=== PATIENT | male | born 1960 | race Caucasian/White ===

== ENCOUNTER 2018-12-23 13:21 | Inpatient (IN) | payer OTHER ==
[2018-12-23 20:28] VITALS: BMI 28.8
--- NOTE | 2018-12-23 20:54 | HP ---
CIWA Score - Admission Criteria [facility]ASAS Guidelines: Admission for Medically Managed Detox: Requires at least one of the followin. CIWA greater than 12 2. Seizures within the past 24 hours 3. Delirium tremens within the past 24 hours 4. Hallucinations within the past 24 hours 5. Acute intervention needed for co occurring medical disorder 6. Acute intervention needed for co occurring psychiatric disorder 7. Severe withdrawal that cannot be handled at a lower level of care (continued vomiting, continued diarrhea, abnormal vital signs) requiring intravenous medication and/or fluids 8. Admission ROS S - HPI Chief Complaint: Seeking admission to Rehab. Allergies/Adverse Reactions: Allergies Allergy/AdvReac Type Severity Reaction Status Date / Time No Known Allergies Allergy Verified 12/23/18 20:08 History of Present Illness: 58 years old male with a long history of alcohol dependence is seeking admission to Rehab. Patient has been to previous detox at [facility]. He has medical history of asthma, hypertension, depression, anemia, anxiety and prostate cancer. He reports that he completed 11/10/2018 at [facility]. He denies suicidal ideation at this time. Exam Limitations: No Limitations - Ebola screening Have you traveled outside of the country in the last 21 days: No Have you had contact with anyone from an Ebola affected area: No Do you have a fever: No - Review of Systems Constitutional: No Symptoms Reported EENT: reports: No Symptoms Reported Respiratory: reports: No Symptoms reported Cardiac: reports: No Symptoms Reported GI: reports: No Symptoms Reported : reports: No Symptoms Reported Musculoskeletal: reports: No Symptoms Reported Integumentary: reports: No Symptoms Reported Neuro: reports: No Symptoms reported Endocrine: reports: No Symptoms Reported Hematology: reports: No Symptoms Reported Psychiatric: reports: No Sypmtoms Reported, Mood/Affect Appropiate, Orientated x3 Other Systems: Reviewed and Negative Patient History - Patient Medical History Hx Anemia: Yes (Vitamin D3) Hx Asthma: Yes (Pt is on Albuterol MDI) Hx Chronic Obstructive Pulmonary Disease (COPD): No Hx Cancer: Yes (Prostate cancer- Completed radiation on 11/10/2018) Hx Cardiac Disorders: No Hx Hypertension: Yes (Not on medication.) Hx Hypercholesterolemia: No Hx Pacemaker: No HX Cerebrovascular Accident: No Hx Seizures: No Hx Dementia: No Hx Diabetes: No Hx Gastrointestinal Disorders: No Hx Liver Disease: No Hx Genitourinary Disorders: No Hx Sexually Transmitted Disorders: No Hx Renal Disease (ESRD): No Hx Thyroid Disease: No Hx Human Immunodeficiency Virus (HIV): No (NEGATIVE 2019) Hx Hepatitis C: No Hx Depression: Yes (Gabapentin, sertraline) Hx Suicide Attempt: No (Denies suicidal ideation at this time) Hx Bipolar Disorder: Yes (Not on medication) Hx Schizophrenia: No - Patient Surgical History Past Surgical History: Yes Other Surgical History: Sx R hand for tendon repair and re attachment last 3 fingers. Hemmorhoidect - PPD History Previous Implant?: Yes Documented Results: Negative w/proof Implanted On Prior R Admission?: Yes Date: 11/01/13 PPD to be Administered?: Yes - Reproductive History Patient is a Female of Child Bearing Age (11 -55 yrs old): No (male) - Smoking Cessation Smoking history: Current every day smoker Have you smoked in the past 12 months: Yes Aproximately how many cigarettes per day: 20 Hx Chewing Tobacco Use: No Initiated information on smoking cessation: Yes 'Breaking Loose' booklet given: 12/23/18 - Substance & Tx. History Hx Alcohol Use: Yes Hx Substance Use: No Substance Use Type: Alcohol Hx Substance Use Treatment: Yes ([facility]) - Substances abused Alcohol Substance route: Oral Frequency: Daily Amount used: 3 or 4 beers Age of first use: 4 Date of last use: 12/19/18 Admission Physical Exam BHS - Vital Signs Vital Signs: Vital Signs - 24 hr 12/23/18 20:08 Temperature 97.5 F L Pulse Rate 73 Respiratory 16 Rate Blood Pressure 106/67 - Physical General Appearance: Yes: Within Normal Limits, Appropriately Dressed, Moderate Distress HEENTM: Yes: Within Normal Limits, Normocephalic, Normal Voice, JESSE Respiratory: Yes: Lungs Clear, Normal Breath Sounds, No Respiratory Distress Neck: Yes: Within Normal Limits, Trachea in good position Breast: Yes: Breast Exam Deferred Cardiology: Yes: Within Normal Limits, Regular Rhythm, Regular Rate Abdominal: Yes: Normal Bowel Sounds, Soft Genitourinary: Yes: Within Normal Limits Back: Yes: Normal Inspection Musculoskeletal: Yes: Within Normal Limits Extremities: Yes: Within Normal Limits, Normal Inspection Neurological: Yes: Alert, Normal Mood/Affect Integumentary: Yes: Warm Lymphatic: Yes: Within Normal Limits - Diagnostic (1) Anemia Current Visit: Yes Status: Acute Qualifiers: Anemia type: unspecified type Qualified Code(s): D64.9 - Anemia, unspecified (2) Depression Current Visit: Yes Status: Chronic Qualifiers: Depression Type: unspecified Qualified Code(s): F32.9 - Major depressive disorder, single episode, unspecified (3) Anxiety Current Visit: Yes Status: Chronic (4) Prostate CA Current Visit: Yes Status: Chronic (5) Alcohol dependence Current Visit: Yes Status: Chronic Qualifiers: Substance use status: uncomplicated Qualified Code(s): F10.20 - Alcohol dependence, uncomplicated (6) Asthma Current Visit: Yes Status: Acute Qualifiers: Asthma severity: mild Asthma persistence: intermittent (7) Essential hypertension Current Visit: Yes Status: Chronic (8) Nicotine dependence Current Visit: Yes Status: Acute Qualifiers: Nicotine product type: cigarettes Substance use status: uncomplicated Qualified Code(s): F17.210 - Nicotine dependence, cigarettes, uncomplicated Cleared for Admission S - Detox or Rehab [facility] Level of Care: Observation Bed Claeared for Rehab Admission: Yes Inpatient Rehab Admission - Rehab Decision to Admit Inpatient rehab admission?: Yes - Initial Determination Are CD services needed?: No Free of communicable disease: Yes Not in need of hospitalization: Yes - Rehab Admission Criteria Previous failed treatment: Yes Poor recovery environment: Yes Comorbidities: Yes Lacks judgement: Yes Patient is meeting Inpatient Rehab admission criteria:: Yes
[2018-12-23] MEDS ORDERED: MAGNESIUM CITRATE 300 ML BOTTLE PO PRN (21:11)
[2018-12-23] MEDS ORDERED: MAG HYDROX/AL HYDROX/SIMETH 30 ML UNIT-DOSE CUP PO PRN (21:11)
[2018-12-23] MEDS ORDERED: guaiFENesin 200 MG/10 ML 10 ML UNIT-DOSE CUPS PO PRN (21:11)
[2018-12-23] MEDS ORDERED: MAGNESIUM HYDROX 2400MG/30ML ORAL SUSPENSION 30 ML CUP PO PRN (21:11)
[2018-12-23] MEDS ORDERED: IBUPROFEN 400 MG TABLET (FP) PO PRN (21:11)
[2018-12-23] MEDS ORDERED: NICOTINE POLACRILEX 2 MG GUM BC PRN (21:11)
[2018-12-23] MEDS ORDERED: ACETAMINOPHEN 325 MG TABLET (FP) PO PRN (21:11)
[2018-12-23] MEDS ORDERED: MENTHOL/PHENOL 1 EACH UD MM PRN (21:11)
[2018-12-23] MEDS ORDERED: P-EPHED 60MG/TRIPROLIDI 2.5MG TABLET PO PRN (21:11)
[2018-12-23] MEDS ORDERED: LOPERAMIDE HCL 2 MG CAPSULE PO PRN (21:11)
[2018-12-23] MEDS ORDERED: ALBUTEROL SO4 8 GM HFA INHALER IH PRN (21:13)
[2018-12-23] MEDS ORDERED: CHOLECALCIFEROL PO SCH (21:15)
[2018-12-23] MEDS: THIAMINE HCL 100 MG TABLET (FP) PO SCH (23:44)
[2018-12-24] MEDS: TAMSULOSIN HCL 0.4 MG CAP PO SCH (08:32)
[2018-12-24] MEDS ORDERED: THIAMINE MONONITRATE 100 MG PO SCH (10:00)
[2018-12-24] MEDS: PRENATAL VITAMINS W/ FOLIC ACID TABLET (FP) PO SCH (10:32)
[2018-12-24] MEDS: NICOTINE 21 MG/24 HOURS TOPICAL PATCH TD SCH (10:33)
--- NOTE | 2018-12-24 10:42 | EKG ---
Test Reason : Blood Pressure : / mmHG Vent. Rate : 056 BPM Atrial Rate : 056 BPM P-R Int : 180 ms QRS Dur : 086 ms QT Int : 432 ms P-R-T Axes : 062 018 052 degrees QTc Int : 416 ms SINUS BRADYCARDIA EARLY REPOLARIZATION OTHERWISE NORMAL ECG NO PREVIOUS ECGS AVAILABLE Confirmed by XIMENA VALENZUELA, CHERYL ([id number]) on 12/24/2018 10:42:39 AM Referred By: Sumit Ramon Confirmed By:CHERYL BUENO MD
--- NOTE | 2018-12-24 10:43 | CONSULT ---
[facility] Psychiatric Consult - Data Date of interview: 12/24/18 Admission source: Self-referred Identifying data: Mr Perkins is a 58 years old male, father of 6 children, employed, homeless admitted to rehab on 12/23/18 Substance Abuse History: Reports history of alcohol use. Refere to addiction counselor's summary for further information Medical History: Significant for anemia, bronchial astma, hypertension, BPH, gout, history of radiation treatment for prostate cancer and orthosurgery for repair tendon right hand and reattachment of last 3 fingers. Smokes cigarettes 1 ppd Psychiatric History: Patient approached twice at bedside. Told narrative writer:"I don't feel well. I will talk to you tomorrow"
[2018-12-24] MEDS: FOLIC ACID 1 MG TABLET (FP) PO SCH (10:59)
[2018-12-24 12:26] LABS: HEMATOCRIT 44.5 % (35.4-49); MCH 30.9 pg (25.7-33.7); MCHC 33.7 g/dl (32.0-35.9); MEAN CELL VOLUME 91.8 fl (80-96); MEAN PLT VOLUME 8.9 fl (7.5-11.1); PLATELET COUNT 213 K/MM3 (134-434); RBC 4.85 M/mm3 (4.00-5.60); RDW 14.5 % (11.9-15.9); WHITE BLOOD COUNT 5.7 K/mm3 (4.0-10.0)
[2018-12-24 12:42] LABS: ALBUMIN 3.3 g/dl (3.4-5.0); BILIRUBIN,TOTAL 0.4 mg/dL (0.2-1); CALCIUM 8.7 mg/dL (8.5-10.1); CREATININE 0.9 mg/dL (0.55-1.3); POTASSIUM 4.1 mmol/L (3.5-5.1); TOT PROT 6.5 g/dl (6.4-8.2)
[2018-12-24] MEDS: THIAMINE HCL 100 MG TABLET (FP) PO SCH (21:52)
[2018-12-25] MEDS: TAMSULOSIN HCL 0.4 MG CAP PO SCH (09:30)
[2018-12-25] MEDS: NICOTINE 21 MG/24 HOURS TOPICAL PATCH TD SCH (09:49)
[2018-12-25] MEDS: PRENATAL VITAMINS W/ FOLIC ACID TABLET (FP) PO SCH (09:49)
[2018-12-25] MEDS: FOLIC ACID 1 MG TABLET (FP) PO SCH (09:49)
[2018-12-25] MEDS: MELATONIN 5 MG TABLETS PO PRN (21:14)
[2018-12-25] MEDS: THIAMINE HCL 100 MG TABLET (FP) PO SCH (21:14)
[2018-12-26] MEDS: TAMSULOSIN HCL 0.4 MG CAP PO SCH (09:46)
[2018-12-26] MEDS: PRENATAL VITAMINS W/ FOLIC ACID TABLET (FP) PO SCH (09:46)
[2018-12-26] MEDS: FOLIC ACID 1 MG TABLET (FP) PO SCH (09:46)
[2018-12-26] MEDS: NICOTINE 21 MG/24 HOURS TOPICAL PATCH TD SCH (09:47)
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
[2018-12-26 18:31] LABS: EPI CELLS 1.9 /HPF (0-5/HPF); HYALINE CASTS 2 /lpf (0-8); PH,URINE 7.5 (5.0-8.0); URINE APPEARANCE CLEAR; URINE BACTERIA 2.4 /hpf (NEGATIVE); URINE BILIRUBIN NEGATIVE (NEGATIVE); URINE COLOR YELLOW; URINE GLUCOSE (UA) NEGATIVE (NEGATIVE); URINE KETONE NEGATIVE (NEGATIVE); URINE LEUK ESTERASE NEGATIVE (NEGATIVE); URINE NITRITE NEGATIVE (NEGATIVE); URINE PROTEIN 1+ (NEGATIVE); URINE RBC 6 /hpf (0-4); URINE WBC 5 /hpf (0-5)
[2018-12-26] MEDS: GABAPENTIN 300 MG CAPSULE (FP) PO SCH (21:16)
[2018-12-26] MEDS: THIAMINE HCL 100 MG TABLET (FP) PO SCH (21:16)
[2018-12-26] MEDS: QUEtiapine FUMARATE 100 MG TABLET (FP) PO SCH (21:16)
[2018-12-26] MEDS: MELATONIN 5 MG TABLETS PO PRN (21:17)
[2018-12-27] MEDS ORDERED: PT OWN MED DRAWER 7, Y5N ONE (08:38)
[2018-12-27] MEDS: TAMSULOSIN HCL 0.4 MG CAP PO SCH (08:40)
[2018-12-27] MEDS: NICOTINE 21 MG/24 HOURS TOPICAL PATCH TD SCH (10:05)
[2018-12-27] MEDS: FOLIC ACID 1 MG TABLET (FP) PO SCH (10:06)
[2018-12-27] MEDS: SERTRALINE HCL 50 MG TABLET (FP) PO SCH (10:06)
[2018-12-27] MEDS: PRENATAL VITAMINS W/ FOLIC ACID TABLET (FP) PO SCH (10:06)
[2018-12-27] MEDS: GABAPENTIN 300 MG CAPSULE (FP) PO SCH ×2 (10:06→21:27)
[2018-12-27] MEDS: QUEtiapine FUMARATE 100 MG TABLET (FP) PO SCH (21:27)
[2018-12-27] MEDS: THIAMINE HCL 100 MG TABLET (FP) PO SCH (21:28)
[2018-12-28] MEDS ORDERED: PT OWN MED DRAWER 7, Y5N ONE (09:24)
[2018-12-28] MEDS: GABAPENTIN 300 MG CAPSULE (FP) PO SCH ×2 (09:49→21:24)
[2018-12-28] MEDS: FOLIC ACID 1 MG TABLET (FP) PO SCH (09:49)
[2018-12-28] MEDS: PRENATAL VITAMINS W/ FOLIC ACID TABLET (FP) PO SCH (09:49)
[2018-12-28] MEDS: SERTRALINE HCL 50 MG TABLET (FP) PO SCH (09:49)
[2018-12-28] MEDS: NICOTINE 21 MG/24 HOURS TOPICAL PATCH TD SCH (09:49)
[2018-12-28] MEDS: TAMSULOSIN HCL 0.4 MG CAP PO SCH (09:49)
[2018-12-28] MEDS: THIAMINE HCL 100 MG TABLET (FP) PO SCH (21:24)
[2018-12-28] MEDS: MELATONIN 5 MG TABLETS PO PRN (21:25)
[2018-12-28] MEDS: QUEtiapine FUMARATE 100 MG TABLET (FP) PO SCH (21:26)
[2018-12-29] MEDS: TAMSULOSIN HCL 0.4 MG CAP PO SCH (08:37)
[2018-12-29] MEDS ORDERED: PT OWN MED DRAWER 7, Y5N ONE (08:51)
[2018-12-29] MEDS: NICOTINE 21 MG/24 HOURS TOPICAL PATCH TD SCH (09:37)
[2018-12-29] MEDS: GABAPENTIN 300 MG CAPSULE (FP) PO SCH ×2 (09:37→21:21)
[2018-12-29] MEDS: FOLIC ACID 1 MG TABLET (FP) PO SCH (09:37)
[2018-12-29] MEDS: PRENATAL VITAMINS W/ FOLIC ACID TABLET (FP) PO SCH (09:37)
[2018-12-29] MEDS: SERTRALINE HCL 50 MG TABLET (FP) PO SCH (09:37)
[2018-12-29] MEDS ORDERED: ERGOCALCIFEROL (VIT D2) 50,000 UNIT (1.25 MG) CAPSULE PO ONE (15:48)
[2018-12-29] MEDS: THIAMINE HCL 100 MG TABLET (FP) PO SCH (21:21)
[2018-12-29] MEDS: MELATONIN 5 MG TABLETS PO PRN (21:21)
[2018-12-29] MEDS: QUEtiapine FUMARATE 100 MG TABLET (FP) PO SCH (21:21)
[2018-12-30] MEDS: TAMSULOSIN HCL 0.4 MG CAP PO SCH (09:09)
[2018-12-30] MEDS: GABAPENTIN 300 MG CAPSULE (FP) PO SCH ×2 (10:08→21:21)
[2018-12-30] MEDS: SERTRALINE HCL 50 MG TABLET (FP) PO SCH (10:08)
[2018-12-30] MEDS: NICOTINE 21 MG/24 HOURS TOPICAL PATCH TD SCH (10:08)
[2018-12-30] MEDS: PRENATAL VITAMINS W/ FOLIC ACID TABLET (FP) PO SCH (10:08)
[2018-12-30] MEDS: FOLIC ACID 1 MG TABLET (FP) PO SCH (10:09)
[2018-12-30] MEDS: THIAMINE HCL 100 MG TABLET (FP) PO SCH (21:21)
[2018-12-30] MEDS: QUEtiapine FUMARATE 100 MG TABLET (FP) PO SCH (21:21)
[2018-12-30] MEDS: MELATONIN 5 MG TABLETS PO PRN (21:21)
[2018-12-31] MEDS ORDERED: PT OWN MED DRAWER 7, Y5N ONE (08:53)
[2018-12-31] MEDS: TAMSULOSIN HCL 0.4 MG CAP PO SCH (09:04)
[2018-12-31] MEDS: NICOTINE 21 MG/24 HOURS TOPICAL PATCH TD SCH (10:03)
[2018-12-31] MEDS: GABAPENTIN 300 MG CAPSULE (FP) PO SCH ×2 (10:04→21:18)
[2018-12-31] MEDS: PRENATAL VITAMINS W/ FOLIC ACID TABLET (FP) PO SCH (10:04)
[2018-12-31] MEDS: FOLIC ACID 1 MG TABLET (FP) PO SCH (10:04)
[2018-12-31] MEDS: SERTRALINE HCL 50 MG TABLET (FP) PO SCH (10:04)
[2018-12-31] MEDS: THIAMINE HCL 100 MG TABLET (FP) PO SCH (21:18)
[2018-12-31] MEDS: QUEtiapine FUMARATE 100 MG TABLET (FP) PO SCH (21:18)
[2018-12-31] MEDS: MELATONIN 5 MG TABLETS PO PRN (21:19)
[2019-01-01] MEDS: SERTRALINE HCL 50 MG TABLET (FP) PO SCH (09:54)
[2019-01-01] MEDS: GABAPENTIN 300 MG CAPSULE (FP) PO SCH ×2 (09:54→21:24)
[2019-01-01] MEDS: FOLIC ACID 1 MG TABLET (FP) PO SCH (09:54)
[2019-01-01] MEDS: PRENATAL VITAMINS W/ FOLIC ACID TABLET (FP) PO SCH (09:54)
[2019-01-01] MEDS: TAMSULOSIN HCL 0.4 MG CAP PO SCH (09:55)
[2019-01-01] MEDS: NICOTINE 21 MG/24 HOURS TOPICAL PATCH TD SCH (09:55)
[2019-01-01] MEDS: THIAMINE HCL 100 MG TABLET (FP) PO SCH (21:24)
[2019-01-01] MEDS: QUEtiapine FUMARATE 100 MG TABLET (FP) PO SCH (21:24)
[2019-01-02] MEDS: TAMSULOSIN HCL 0.4 MG CAP PO SCH (08:58)
[2019-01-02] MEDS: SERTRALINE HCL 50 MG TABLET (FP) PO SCH (09:57)
[2019-01-02] MEDS: GABAPENTIN 300 MG CAPSULE (FP) PO SCH ×2 (09:57→21:16)
[2019-01-02] MEDS: NICOTINE 21 MG/24 HOURS TOPICAL PATCH TD SCH (09:57)
[2019-01-02] MEDS: PRENATAL VITAMINS W/ FOLIC ACID TABLET (FP) PO SCH (09:58)
[2019-01-02] MEDS: FOLIC ACID 1 MG TABLET (FP) PO SCH (09:59)
[2019-01-02] MEDS: QUEtiapine FUMARATE 100 MG TABLET (FP) PO SCH (21:16)
[2019-01-02] MEDS: MELATONIN 5 MG TABLETS PO PRN (21:16)
[2019-01-02] MEDS: THIAMINE HCL 100 MG TABLET (FP) PO SCH (21:16)
[2019-01-03] MEDS ORDERED: PT OWN MED DRAWER 7, Y5N ONE (08:39)
[2019-01-03] MEDS: TAMSULOSIN HCL 0.4 MG CAP PO SCH (09:34)
[2019-01-03] MEDS: NICOTINE 21 MG/24 HOURS TOPICAL PATCH TD SCH (09:43)
[2019-01-03] MEDS: PRENATAL VITAMINS W/ FOLIC ACID TABLET (FP) PO SCH (09:44)
[2019-01-03] MEDS: SERTRALINE HCL 50 MG TABLET (FP) PO SCH (09:44)
[2019-01-03] MEDS: FOLIC ACID 1 MG TABLET (FP) PO SCH (09:44)
[2019-01-03] MEDS: GABAPENTIN 300 MG CAPSULE (FP) PO SCH ×2 (09:44→21:16)
[2019-01-03] MEDS: THIAMINE HCL 100 MG TABLET (FP) PO SCH (21:16)
[2019-01-03] MEDS: QUEtiapine FUMARATE 100 MG TABLET (FP) PO SCH (21:16)
[2019-01-04] MEDS ORDERED: PT OWN MED DRAWER 7, Y5N ONE (08:37)
[2019-01-04] MEDS: NICOTINE 21 MG/24 HOURS TOPICAL PATCH TD SCH (09:06)
[2019-01-04] MEDS: FOLIC ACID 1 MG TABLET (FP) PO SCH (09:06)
[2019-01-04] MEDS: TAMSULOSIN HCL 0.4 MG CAP PO SCH (09:06)
[2019-01-04] MEDS: GABAPENTIN 300 MG CAPSULE (FP) PO SCH ×2 (09:06→21:16)
[2019-01-04] MEDS: PRENATAL VITAMINS W/ FOLIC ACID TABLET (FP) PO SCH (09:06)
[2019-01-04] MEDS: SERTRALINE HCL 50 MG TABLET (FP) PO SCH (09:06)
[2019-01-04] MEDS: MELATONIN 5 MG TABLETS PO PRN (21:16)
[2019-01-04] MEDS: QUEtiapine FUMARATE 100 MG TABLET (FP) PO SCH (21:16)
[2019-01-04] MEDS: THIAMINE HCL 100 MG TABLET (FP) PO SCH (21:16)
[2019-01-05] MEDS: TAMSULOSIN HCL 0.4 MG CAP PO SCH (08:39)
[2019-01-05] MEDS ORDERED: PT OWN MED DRAWER 7, Y5N ONE (08:42)
[2019-01-05] MEDS: PRENATAL VITAMINS W/ FOLIC ACID TABLET (FP) PO SCH (09:39)
[2019-01-05] MEDS: FOLIC ACID 1 MG TABLET (FP) PO SCH (09:39)
[2019-01-05] MEDS: GABAPENTIN 300 MG CAPSULE (FP) PO SCH ×2 (09:39→21:15)
[2019-01-05] MEDS: SERTRALINE HCL 50 MG TABLET (FP) PO SCH (09:40)
[2019-01-05] MEDS: NICOTINE 21 MG/24 HOURS TOPICAL PATCH TD SCH (09:40)
[2019-01-05] MEDS: QUEtiapine FUMARATE 100 MG TABLET (FP) PO SCH (21:15)
[2019-01-05] MEDS: MELATONIN 5 MG TABLETS PO PRN (21:15)
[2019-01-05] MEDS: THIAMINE HCL 100 MG TABLET (FP) PO SCH (21:15)
[2019-01-06] MEDS: TAMSULOSIN HCL 0.4 MG CAP PO SCH (08:50)
[2019-01-06] MEDS: GABAPENTIN 300 MG CAPSULE (FP) PO SCH ×2 (10:05→21:15)
[2019-01-06] MEDS: NICOTINE 21 MG/24 HOURS TOPICAL PATCH TD SCH (10:05)
[2019-01-06] MEDS: FOLIC ACID 1 MG TABLET (FP) PO SCH (10:05)
[2019-01-06] MEDS: SERTRALINE HCL 50 MG TABLET (FP) PO SCH (10:05)
[2019-01-06] MEDS: PRENATAL VITAMINS W/ FOLIC ACID TABLET (FP) PO SCH (10:05)
[2019-01-06] MEDS: THIAMINE HCL 100 MG TABLET (FP) PO SCH (21:15)
[2019-01-06] MEDS: MELATONIN 5 MG TABLETS PO PRN (21:15)
[2019-01-06] MEDS: QUEtiapine FUMARATE 100 MG TABLET (FP) PO SCH (21:15)
[2019-01-07] MEDS: TAMSULOSIN HCL 0.4 MG CAP PO SCH (08:51)
[2019-01-07] MEDS: NICOTINE 21 MG/24 HOURS TOPICAL PATCH TD SCH (09:51)
[2019-01-07] MEDS: PRENATAL VITAMINS W/ FOLIC ACID TABLET (FP) PO SCH (09:51)
[2019-01-07] MEDS: SERTRALINE HCL 50 MG TABLET (FP) PO SCH (09:51)
[2019-01-07] MEDS: GABAPENTIN 300 MG CAPSULE (FP) PO SCH ×2 (09:51→21:13)
[2019-01-07] MEDS: FOLIC ACID 1 MG TABLET (FP) PO SCH (09:51)
[2019-01-07] MEDS: QUEtiapine FUMARATE 100 MG TABLET (FP) PO SCH (21:13)
[2019-01-07] MEDS: THIAMINE HCL 100 MG TABLET (FP) PO SCH (21:13)
[2019-01-07] MEDS: MELATONIN 5 MG TABLETS PO PRN (21:13)
[2019-01-08] MEDS: NICOTINE 21 MG/24 HOURS TOPICAL PATCH TD SCH (09:40)
[2019-01-08] MEDS: PRENATAL VITAMINS W/ FOLIC ACID TABLET (FP) PO SCH (09:40)
[2019-01-08] MEDS: SERTRALINE HCL 50 MG TABLET (FP) PO SCH (09:40)
[2019-01-08] MEDS: FOLIC ACID 1 MG TABLET (FP) PO SCH (09:40)
[2019-01-08] MEDS: TAMSULOSIN HCL 0.4 MG CAP PO SCH (09:40)
[2019-01-08] MEDS: GABAPENTIN 300 MG CAPSULE (FP) PO SCH ×2 (09:40→21:10)
[2019-01-08] MEDS: THIAMINE HCL 100 MG TABLET (FP) PO SCH (21:10)
[2019-01-08] MEDS: MELATONIN 5 MG TABLETS PO PRN (21:10)
[2019-01-08] MEDS: QUEtiapine FUMARATE 100 MG TABLET (FP) PO SCH (21:10)
[2019-01-09] MEDS: FOLIC ACID 1 MG TABLET (FP) PO SCH (08:45)
[2019-01-09] MEDS: SERTRALINE HCL 50 MG TABLET (FP) PO SCH (09:45)
[2019-01-09] MEDS: TAMSULOSIN HCL 0.4 MG CAP PO SCH (09:45)
[2019-01-09] MEDS: NICOTINE 21 MG/24 HOURS TOPICAL PATCH TD SCH (09:45)
[2019-01-09] MEDS: GABAPENTIN 300 MG CAPSULE (FP) PO SCH ×2 (09:45→21:25)
[2019-01-09] MEDS: PRENATAL VITAMINS W/ FOLIC ACID TABLET (FP) PO SCH (09:46)
[2019-01-09] MEDS: QUEtiapine FUMARATE 100 MG TABLET (FP) PO SCH (21:25)
[2019-01-09] MEDS: THIAMINE HCL 100 MG TABLET (FP) PO SCH (21:25)
[2019-01-09] MEDS: MELATONIN 5 MG TABLETS PO PRN (21:25)
[2019-01-10] MEDS: FOLIC ACID 1 MG TABLET (FP) PO SCH (09:57)
[2019-01-10] MEDS: GABAPENTIN 300 MG CAPSULE (FP) PO SCH ×2 (09:57→21:21)
[2019-01-10] MEDS: TAMSULOSIN HCL 0.4 MG CAP PO SCH (09:57)
[2019-01-10] MEDS: PRENATAL VITAMINS W/ FOLIC ACID TABLET (FP) PO SCH (09:57)
[2019-01-10] MEDS: SERTRALINE HCL 50 MG TABLET (FP) PO SCH (09:57)
[2019-01-10] MEDS: NICOTINE 21 MG/24 HOURS TOPICAL PATCH TD SCH (09:58)
[2019-01-10] MEDS: THIAMINE HCL 100 MG TABLET (FP) PO SCH (21:21)
[2019-01-10] MEDS: QUEtiapine FUMARATE 100 MG TABLET (FP) PO SCH (21:21)
[2019-01-11] MEDS: NICOTINE 21 MG/24 HOURS TOPICAL PATCH TD SCH (09:45)
[2019-01-11] MEDS: PRENATAL VITAMINS W/ FOLIC ACID TABLET (FP) PO SCH (09:45)
[2019-01-11] MEDS: TAMSULOSIN HCL 0.4 MG CAP PO SCH (09:45)
[2019-01-11] MEDS: SERTRALINE HCL 50 MG TABLET (FP) PO SCH (09:45)
[2019-01-11] MEDS: FOLIC ACID 1 MG TABLET (FP) PO SCH (09:45)
[2019-01-11] MEDS: GABAPENTIN 300 MG CAPSULE (FP) PO SCH ×2 (09:45→21:18)
[2019-01-11] MEDS: THIAMINE HCL 100 MG TABLET (FP) PO SCH (21:18)
[2019-01-11] MEDS: QUEtiapine FUMARATE 100 MG TABLET (FP) PO SCH (21:18)
[2019-01-12] MEDS: FOLIC ACID 1 MG TABLET (FP) PO SCH (09:34)
[2019-01-12] MEDS: TAMSULOSIN HCL 0.4 MG CAP PO SCH (09:34)
[2019-01-12] MEDS: PRENATAL VITAMINS W/ FOLIC ACID TABLET (FP) PO SCH (09:34)
[2019-01-12] MEDS: NICOTINE 21 MG/24 HOURS TOPICAL PATCH TD SCH (09:34)
[2019-01-12] MEDS: GABAPENTIN 300 MG CAPSULE (FP) PO SCH ×2 (09:34→21:25)
[2019-01-12] MEDS: SERTRALINE HCL 50 MG TABLET (FP) PO SCH (10:21)
[2019-01-12] MEDS: MELATONIN 5 MG TABLETS PO PRN (21:25)
[2019-01-12] MEDS: THIAMINE HCL 100 MG TABLET (FP) PO SCH (21:25)
[2019-01-12] MEDS: QUEtiapine FUMARATE 100 MG TABLET (FP) PO SCH (21:25)
[2019-01-13] MEDS ORDERED: PT OWN MED DRAWER 7, Y5N ONE (08:55)
[2019-01-13] MEDS: FOLIC ACID 1 MG TABLET (FP) PO SCH (09:19)
[2019-01-13] MEDS: PRENATAL VITAMINS W/ FOLIC ACID TABLET (FP) PO SCH (09:19)
[2019-01-13] MEDS: NICOTINE 21 MG/24 HOURS TOPICAL PATCH TD SCH (09:19)
[2019-01-13] MEDS: TAMSULOSIN HCL 0.4 MG CAP PO SCH (09:19)
[2019-01-13] MEDS: SERTRALINE HCL 50 MG TABLET (FP) PO SCH (09:19)
[2019-01-13] MEDS: GABAPENTIN 300 MG CAPSULE (FP) PO SCH ×2 (09:19→21:29)
[2019-01-13] MEDS: MELATONIN 5 MG TABLETS PO PRN (21:29)
[2019-01-13] MEDS: QUEtiapine FUMARATE 100 MG TABLET (FP) PO SCH (21:29)
[2019-01-13] MEDS: THIAMINE HCL 100 MG TABLET (FP) PO SCH (21:29)
[2019-01-14] MEDS: TAMSULOSIN HCL 0.4 MG CAP PO SCH (08:50)
[2019-01-14] MEDS: GABAPENTIN 300 MG CAPSULE (FP) PO SCH ×2 (09:50→21:42)
[2019-01-14] MEDS: FOLIC ACID 1 MG TABLET (FP) PO SCH (09:50)
[2019-01-14] MEDS: NICOTINE 21 MG/24 HOURS TOPICAL PATCH TD SCH (09:50)
[2019-01-14] MEDS: PRENATAL VITAMINS W/ FOLIC ACID TABLET (FP) PO SCH (09:50)
[2019-01-14] MEDS: SERTRALINE HCL 50 MG TABLET (FP) PO SCH (09:50)
[2019-01-14] MEDS: THIAMINE HCL 100 MG TABLET (FP) PO SCH (21:42)
[2019-01-14] MEDS: MELATONIN 5 MG TABLETS PO PRN (21:42)
[2019-01-14] MEDS: QUEtiapine FUMARATE 100 MG TABLET (FP) PO SCH (21:42)
[2019-01-15] MEDS ORDERED: PT OWN MED DRAWER 7, Y5N ONE (08:45)
[2019-01-15] MEDS: PRENATAL VITAMINS W/ FOLIC ACID TABLET (FP) PO SCH (09:56)
[2019-01-15] MEDS: GABAPENTIN 300 MG CAPSULE (FP) PO SCH ×2 (09:56→21:33)
[2019-01-15] MEDS: NICOTINE 21 MG/24 HOURS TOPICAL PATCH TD SCH (09:56)
[2019-01-15] MEDS: FOLIC ACID 1 MG TABLET (FP) PO SCH (09:56)
[2019-01-15] MEDS: TAMSULOSIN HCL 0.4 MG CAP PO SCH (09:57)
[2019-01-15] MEDS: SERTRALINE HCL 50 MG TABLET (FP) PO SCH (10:47)
[2019-01-15] MEDS: MELATONIN 5 MG TABLETS PO PRN (21:33)
[2019-01-15] MEDS: QUEtiapine FUMARATE 100 MG TABLET (FP) PO SCH (21:33)
[2019-01-15] MEDS: THIAMINE HCL 100 MG TABLET (FP) PO SCH (21:33)
[2019-01-16] MEDS: PRENATAL VITAMINS W/ FOLIC ACID TABLET (FP) PO SCH (09:39)
[2019-01-16] MEDS: GABAPENTIN 300 MG CAPSULE (FP) PO SCH ×2 (09:39→21:24)
[2019-01-16] MEDS: NICOTINE 21 MG/24 HOURS TOPICAL PATCH TD SCH (09:39)
[2019-01-16] MEDS: FOLIC ACID 1 MG TABLET (FP) PO SCH (09:39)
[2019-01-16] MEDS: SERTRALINE HCL 50 MG TABLET (FP) PO SCH (09:39)
[2019-01-16] MEDS: TAMSULOSIN HCL 0.4 MG CAP PO SCH (09:39)
[2019-01-16] MEDS: QUEtiapine FUMARATE 100 MG TABLET (FP) PO SCH (21:24)
[2019-01-16] MEDS: THIAMINE HCL 100 MG TABLET (FP) PO SCH (21:24)
[2019-01-16] MEDS: MELATONIN 5 MG TABLETS PO PRN (21:24)
[2019-01-17] MEDS ORDERED: PT OWN MED DRAWER 7, Y5N ONE (08:49)
[2019-01-17] MEDS: TAMSULOSIN HCL 0.4 MG CAP PO SCH (09:14)
[2019-01-17] MEDS: NICOTINE 21 MG/24 HOURS TOPICAL PATCH TD SCH (09:14)
[2019-01-17] MEDS: GABAPENTIN 300 MG CAPSULE (FP) PO SCH ×2 (09:14→21:22)
[2019-01-17] MEDS: FOLIC ACID 1 MG TABLET (FP) PO SCH (09:14)
[2019-01-17] MEDS: PRENATAL VITAMINS W/ FOLIC ACID TABLET (FP) PO SCH (09:14)
[2019-01-17] MEDS: SERTRALINE HCL 50 MG TABLET (FP) PO SCH (09:14)
[2019-01-17] MEDS: THIAMINE HCL 100 MG TABLET (FP) PO SCH (21:22)
[2019-01-17] MEDS: MELATONIN 5 MG TABLETS PO PRN (21:22)
[2019-01-17] MEDS: QUEtiapine FUMARATE 100 MG TABLET (FP) PO SCH (21:22)
[2019-01-18] MEDS: GABAPENTIN 300 MG CAPSULE (FP) PO SCH ×2 (09:07→21:25)
[2019-01-18] MEDS: SERTRALINE HCL 50 MG TABLET (FP) PO SCH (09:07)
[2019-01-18] MEDS: NICOTINE 21 MG/24 HOURS TOPICAL PATCH TD SCH (09:07)
[2019-01-18] MEDS: PRENATAL VITAMINS W/ FOLIC ACID TABLET (FP) PO SCH (09:07)
[2019-01-18] MEDS: TAMSULOSIN HCL 0.4 MG CAP PO SCH (09:07)
[2019-01-18] MEDS ORDERED: PT OWN MED DRAWER 7, Y5N ONE (09:08)
[2019-01-18] MEDS: FOLIC ACID 1 MG TABLET (FP) PO SCH (09:08)
[2019-01-18] MEDS: QUEtiapine FUMARATE 100 MG TABLET (FP) PO SCH (21:25)
[2019-01-18] MEDS: MELATONIN 5 MG TABLETS PO PRN (21:25)
[2019-01-18] MEDS: THIAMINE HCL 100 MG TABLET (FP) PO SCH (21:25)
[2019-01-19] MEDS: TAMSULOSIN HCL 0.4 MG CAP PO SCH (08:53)
[2019-01-19] MEDS ORDERED: PT OWN MED DRAWER 7, Y5N ONE (09:03)
[2019-01-19] MEDS: NICOTINE 21 MG/24 HOURS TOPICAL PATCH TD SCH (09:53)
[2019-01-19] MEDS: PRENATAL VITAMINS W/ FOLIC ACID TABLET (FP) PO SCH (09:53)
[2019-01-19] MEDS: GABAPENTIN 300 MG CAPSULE (FP) PO SCH ×2 (09:53→21:24)
[2019-01-19] MEDS: SERTRALINE HCL 50 MG TABLET (FP) PO SCH (09:53)
[2019-01-19] MEDS: FOLIC ACID 1 MG TABLET (FP) PO SCH (09:53)
[2019-01-19] MEDS: THIAMINE HCL 100 MG TABLET (FP) PO SCH (21:24)
[2019-01-19] MEDS: QUEtiapine FUMARATE 100 MG TABLET (FP) PO SCH (21:24)
[2019-01-19] MEDS: MELATONIN 5 MG TABLETS PO PRN (21:25)
[2019-01-20 07:05] VITALS: BP 113/67; PULSE 77; TEMP 97.6
--- NOTE | 2019-01-20 08:54 | DS ---
[facility] Rehab Discharge Summary - [facility] Rehab Discharge Summary Admission Date: 12/23/18 Discharge Date: 01/20/19 - History Present History: Alcohol dependence Pertinent Past History: 58 years old male with a long history of alcohol dependence. Patient has been to previous detox at [facility]. He has medical history of asthma , hypertension, depression, anemia, anxiety and prostate cancer. He reports that he completed treatment for prostate cancer on11/10/2018 at [facility]. - Discharge Physical Exam Vital Signs: Vital Signs Temperature 97.6 F 01/20/19 07:04 Pulse Rate 77 01/20/19 07:04 Respiratory Rate 18 01/20/19 07:04 Blood Pressure 113/67 01/20/19 07:04 O2 Sat by Pulse Oximetry (%) Pertinent Admission Physical Exam Findings: General Appearance: no apparent distress HEENTM:Normocephalic,JESSE Respiratory: Lungs Clear Neck: supple Trachea in good position Cardiology: Regular Rhythm, Regular Rate Abdominal: + Bowel Sounds, Soft Musculoskeletal: Full weight bearing, full ROM, steady gait Neurological: CN 2-12 intact - Treatment Discharge Condition: Outpatient referral accepted (Pateint will be going to [facility]. PCP Otto at [facility]. Medically stable for discharge.Has follow up appointment for prostate cancer.) - Medication Discharge Medications: Ambulatory Orders Cholecalciferol (Vitamin D3) 50,000 iu PO WEEKLY 12/23/18 Gabapentin 600 mg PO BID 12/23/18 Quetiapine Fumarate [Seroquel -] 100 mg PO HS 12/23/18 Sertraline HCl [Zoloft -] 50 mg PO DAILY 12/23/18 Thiamine Mononitrate (Vit B1) 100 mg PO DAILY 12/23/18 traZODone HCL [Trazodone HCl] 1 tablet PO HS 12/23/18 Albuterol Sulfate Inhaler - [Ventolin HFA Inhaler -] 2 inh PO Q4H PRN #1 inhaler 01/19/19 Tamsulosin HCl 1 cap PO DAILY #14 capsule 01/19/19 Folic Acid 1 tablet PO DAILY #14 tablet 01/20/19 - Medication-Assisted Treatment (MAT) Medication-Assisted Treatment (MAT): No - Discharge Instructions Diet, activity, other medical instructions: Diet: as tolerated Activity: as tolerated Other medical instructions: Please follow up with aftercare referral, make a primary care appointment in 2 weeks and keep the follow up appointment for prostate cancer. - Diagnosis (1) Alcohol dependence Current Visit: Yes Status: Chronic Qualifiers: Substance use status: uncomplicated Qualified Code(s): F10.20 - Alcohol dependence, uncomplicated - Follow-up Referral Minutes to complete discharge: 20 - AMA Did Patient Leave Against Medical Advice: No
[2019-01-20] MEDS: GABAPENTIN 300 MG CAPSULE (FP) PO SCH (09:48)
[2019-01-20] MEDS: PRENATAL VITAMINS W/ FOLIC ACID TABLET (FP) PO SCH (09:48)
[2019-01-20] MEDS: TAMSULOSIN HCL 0.4 MG CAP PO SCH (09:48)
[2019-01-20] MEDS: NICOTINE 21 MG/24 HOURS TOPICAL PATCH TD SCH (09:49)
[2019-01-20] MEDS: SERTRALINE HCL 50 MG TABLET (FP) PO SCH (09:49)
[2019-01-20] MEDS: FOLIC ACID 1 MG TABLET (FP) PO SCH (09:49)
== END 2019-01-20 09:50 | disposition home or self-care (01) | DRG 772 ==
LOC: YASAS 13:21 → Y3W 22:48
PROVIDERS: ADMIT Neuromusculoskeletal Medicine & OMM; ATTEND Neuromusculoskeletal Medicine & OMM
PROC: HZ42ZZZ Group Counseling for Substance Abuse Treatment, Cognitive-Behavioral (ICD-10-PCS; principal; 2018-12-23)
DX: F10.20 Alcohol dependence, uncomplicated (principal); F10.282 Alcohol dependence with alcohol-induced sleep disorder; F17.210 Nicotine dependence, cigarettes, uncomplicated; F32.9 Major depressive disorder, single episode, unspecified; F41.9 Anxiety disorder, unspecified; I10 Essential (primary) hypertension; N40.0 Benign prostatic hyperplasia without lower urinary tract symptoms; M10.9 Gout, unspecified; Z85.46 Personal history of malignant neoplasm of prostate; Z92.3 Personal history of irradiation; Z04.72 Encounter for examination and observation following alleged child physical abuse
CPT/HCPCS: 36415; 80053; 81003; 82962; 85027; 86593; 93005; 93010

== ENCOUNTER 2023-08-02 19:12 | Inpatient (IN) | payer OTHER ==
[2023-08-02 22:12] VITALS: BMI 24.3
[2023-08-02] MEDS ORDERED: NALOXONE HCL 0.4 MG/ML VIAL IM PRN (23:04)
[2023-08-02] MEDS ORDERED: METHOCARBAMOL 500 MG TABLET PO PRN (23:04)
[2023-08-02] MEDS ORDERED: BENZOCAINE/MENTHOL (CHLORASEPTIC ) LOZENGE MM PRN (23:04)
[2023-08-02] MEDS ORDERED: BISMUTH SUBSALICYLATE 524 MG/30 ML PO PRN (23:04)
[2023-08-02] MEDS ORDERED: MAG HYDROX/AL HYDROX/SIMETH 30 ML UNIT-DOSE CUP PO PRN (23:04)
[2023-08-02] MEDS ORDERED: hydrOXYzine PAMOATE 25 MG CAPSULE (FP) PO PRN (23:04)
[2023-08-02] MEDS ORDERED: guaiFENesin 600 MG TABLET.ER (FP) PO PRN (23:04)
[2023-08-02] MEDS ORDERED: NALOXONE HCL (KLOXXADO) 8 MG SPRAY NS PRN (23:04)
[2023-08-02] MEDS ORDERED: BENZONATATE 200 MG CAPSULE PO PRN (23:04)
[2023-08-02] MEDS ORDERED: LOPERAMIDE HCL 2 MG CAPSULE PO PRN (23:04)
[2023-08-02] MEDS ORDERED: ACETAMINOPHEN 325 MG TABLET (FP) PO PRN (23:04)
[2023-08-02] MEDS ORDERED: IBUPROFEN 400 MG TABLET (FP) PO PRN (23:04)
[2023-08-02] MEDS ORDERED: POLYETHYLENE GLYCOL (HEALTHYLAX) 3350 17 GM PACKET PO PRN (23:04)
[2023-08-02] MEDS ORDERED: MAGNESIUM HYDROX 2400MG/30ML ORAL SUSPENSION 30 ML CUP PO PRN (23:04)
[2023-08-02] MEDS ORDERED: IBUPROFEN 600 MG TABLET (FP) PO PRN (23:04)
[2023-08-02] MEDS ORDERED: ALBUTEROL SO4 HFA INHALER IH PRN (23:23)
[2023-08-03] MEDS: INSULIN ASPART SLIDING SCALE (NOVOLOG) 1 VIAL SQ SCH (07:14)
[2023-08-03] MEDS ORDERED: diazePAM 5 MG TABLET PO PRN (10:24)
[2023-08-03] MEDS: PRENATAL VITAMINS W/ FOLIC ACID TABLET (FP) PO SCH (10:43)
[2023-08-03] MEDS: NICOTINE 14 MG/24 HOURS TOPICAL PATCH TD SCH (10:44)
[2023-08-03] MEDS: ONDANSETRON *ODT* 4 MG TABLET SL PRN (11:20)
[2023-08-03] MEDS: diazePAM 5 MG TABLET PO SCH (11:53)
[2023-08-03 12:33] LABS: HEMATOCRIT 33.2 % (35.4-49); HEMOGLOBIN 11.3 GM/dL (11.7-16.9); MCH 30.1 pg (25.7-33.7); MEAN CELL VOLUME 88.7 fl (80-96); MEAN PLT VOLUME 8.2 fl (7.5-11.1); PLATELET COUNT 390 10^3/uL (134-434); RBC 3.75 M/mm3 (4.00-5.60); RDW 13.8 % (11.9-15.9); WHITE BLOOD COUNT 7.8 K/mm3 (4.0-10.0)
[2023-08-03 13:08] LABS: CHLORIDE 107 mmol/L (98-107); POTASSIUM 3.5 mmol/L (3.5-5.1); SODIUM 138 mmol/L (136-145)
[2023-08-03 13:11] LABS: ALBUMIN 2.1 g/dl (3.4-5.0); ANION GAP 1 mmol/L (4-13); BLOOD UREA NITROGEN 8.5 mg/dL (7-18); CALCIUM 7.6 mg/dL (8.5-10.1); CO2 30 mmol/L (21-32)
[2023-08-03 13:12] LABS: GLUCOSE,RANDOM 105 mg/dL (74-106)
[2023-08-03 13:14] LABS: CREATININE 0.6 mg/dL (0.55-1.3); SGPT/ALT 14 U/L (13-61)
[2023-08-03 13:15] LABS: SGOT/AST 14 U/L (15-37)
[2023-08-03 13:16] LABS: BILIRUBIN,TOTAL 0.5 mg/dL (0.2-1)
[2023-08-03 13:17] LABS: ALK PHOS 98 U/L (45-117)
[2023-08-03] MEDS: THIAMINE 100 MG TABLET PO SCH (22:15)
[2023-08-03] MEDS: MELATONIN 5 MG TABLETS PO SCH (22:15)
[2023-08-03] MEDS: QUEtiapine FUMARATE 50 MG TABLET PO SCH (22:16)
[2023-08-03] MEDS: GABAPENTIN 100 MG CAPSULE PO SCH (22:16)
[2023-08-04] MEDS: SERTRALINE HCL 50 MG TABLET (FP) PO SCH (10:13)
[2023-08-05] MEDS: diazePAM 5 MG TABLET PO SCH (06:09)
[2023-08-05] MEDS ORDERED: ALBUTEROL SO4 HFA INHALER IH PRN (10:07)
[2023-08-05] MEDS: NICOTINE POLACRILEX 2 MG GUM BUC PRN (10:27)
[2023-08-05] MEDS: TAMSULOSIN HCL 0.4 MG CAP PO SCH (12:13)
[2023-08-05] MEDS: CHOLECALCIFEROL (VIT D3) 1,000 UNIT (25 MCG) TABLET PO SCH (12:13)
[2023-08-06] MEDS: diazePAM 5 MG TABLET PO SCH (05:23)
[2023-08-06] MEDS: FOLIC ACID 1 MG TABLET (FP) PO SCH (09:41)
[2023-08-07] MEDS: diazePAM 5 MG TABLET PO ONE (05:27)
[2023-08-07 10:00] VITALS: RESP 18
[2023-08-07 10:02] VITALS: BP 115/62; PULSE 83; TEMP 97.5
== END 2023-08-07 12:20 | disposition other institution (70) | DRG 775 ==
LOC: YASAS 19:12 → Y3N 23:31
PROVIDERS: ADMIT Allergy & Immunology; ATTEND Surgery
PROC: HZ2ZZZZ Detoxification Services for Substance Abuse Treatment (ICD-10-PCS; principal; 2023-08-02)
DX: F10.230 Alcohol dependence with withdrawal, uncomplicated (principal); F17.210 Nicotine dependence, cigarettes, uncomplicated; F10.282 Alcohol dependence with alcohol-induced sleep disorder; F10.24 Alcohol dependence with alcohol-induced mood disorder; F31.9 Bipolar disorder, unspecified; F41.9 Anxiety disorder, unspecified; I10 Essential (primary) hypertension; J45.20 Mild intermittent asthma, uncomplicated; N40.0 Benign prostatic hyperplasia without lower urinary tract symptoms; R73.03 Prediabetes; Z59.00 Homelessness unspecified
CPT/HCPCS: 36415; 80053; 80305; 80307; 82962; 85027; 86780; 87811; 93005; 93010; Q0162

== ENCOUNTER 2023-08-07 12:20 | Inpatient (IN) | payer OTHER ==
[2023-08-07] MEDS ORDERED: BENZOCAINE/MENTHOL (CHLORASEPTIC ) LOZENGE MM PRN (15:12)
[2023-08-07] MEDS ORDERED: MAGNESIUM HYDROX 2400MG/30ML ORAL SUSPENSION 30 ML CUP PO PRN (15:12)
[2023-08-07] MEDS ORDERED: BENZONATATE 200 MG CAPSULE PO PRN (15:12)
[2023-08-07] MEDS ORDERED: ACETAMINOPHEN 325 MG TABLET (FP) PO PRN (15:12)
[2023-08-07] MEDS ORDERED: MAG HYDROX/AL HYDROX/SIMETH 30 ML UNIT-DOSE CUP PO PRN (15:12)
[2023-08-07] MEDS ORDERED: POLYETHYLENE GLYCOL (HEALTHYLAX) 3350 17 GM PACKET PO PRN (15:12)
[2023-08-07] MEDS ORDERED: METHOCARBAMOL 500 MG TABLET PO PRN (15:12)
[2023-08-07] MEDS ORDERED: NALOXONE (NYS OPIOID OVERDOSE PROGRAM) 4 MG/0.1 ML SPRAY NS PRN (15:12)
[2023-08-07] MEDS ORDERED: NICOTINE POLACRILEX 4 MG GUM BUC PRN (15:12)
[2023-08-07] MEDS ORDERED: IBUPROFEN 400 MG TABLET (FP) PO PRN (15:12)
[2023-08-07] MEDS ORDERED: NICOTINE POLACRILEX 2 MG LOZENGE BC PRN (15:12)
[2023-08-07] MEDS ORDERED: guaiFENesin 600 MG TABLET.ER (FP) PO PRN (15:12)
[2023-08-07] MEDS ORDERED: NALOXONE HCL 0.4 MG/ML VIAL IVPUSH PRN (15:12)
[2023-08-07] MEDS ORDERED: hydrOXYzine PAMOATE 25 MG CAPSULE (FP) PO PRN (15:12)
[2023-08-07] MEDS ORDERED: IBUPROFEN 600 MG TABLET (FP) PO PRN (15:12)
[2023-08-07] MEDS ORDERED: ALBUTEROL SO4 HFA INHALER IH PRN (15:16)
[2023-08-07] MEDS: QUEtiapine FUMARATE 100 MG TABLET (FP) PO SCH (21:15)
[2023-08-07] MEDS: GABAPENTIN 300 MG CAPSULE PO SCH (21:15)
[2023-08-07] MEDS: MELATONIN 5 MG TABLETS PO SCH (21:15)
[2023-08-07] MEDS: THIAMINE 100 MG TABLET PO SCH (21:15)
[2023-08-08] MEDS: TAMSULOSIN HCL 0.4 MG CAP PO SCH (07:31)
[2023-08-08] MEDS: LOPERAMIDE HCL 2 MG CAPSULE PO PRN (09:07)
[2023-08-08] MEDS: FOLIC ACID 1 MG TABLET (FP) PO SCH (09:07)
[2023-08-08] MEDS: CHOLECALCIFEROL (VIT D3) 1,000 UNIT (25 MCG) TABLET PO SCH (09:08)
[2023-08-08] MEDS: SERTRALINE HCL 50 MG TABLET (FP) PO SCH (09:08)
[2023-08-08] MEDS: NICOTINE 14 MG/24 HOURS TOPICAL PATCH TD SCH (09:08)
[2023-08-08] MEDS: PRENATAL VITAMINS W/ FOLIC ACID TABLET (FP) PO SCH (09:09)
[2023-08-08] MEDS ORDERED: THIAMINE MONONITRATE 100 MG PO SCH (10:00)
[2023-08-08] MEDS ORDERED: PATIENT'S OWN MEDICATION (NON-FORMULARY) (Sertraline Hcl [Zoloft] 100 MG Tablet) PO SCH (10:00)
[2023-08-08 12:31] LABS: HIV INTERPRETATION NEGATIVE (NEGATIVE)
[2023-08-09 09:57] LABS: INR 1.19 (0.83-1.09); PROTHROMBIN TIME (PATIENT) 13.4 SEC (9.7-13.0)
[2023-08-09] MEDS: ACAMPROSATE CALCIUM 333 MG TABLET.DR PO SCH (21:14)
[2023-08-10] MEDS: CHOLECALCIFEROL (VIT D3) 400 UNIT (10 MCG) TABLET PO SCH (09:40)
[2023-08-19] MEDS: LACTULOSE 20 GM/30 ML UDC (FOR ORAL USE ONLY) PO SCH (12:12)
[2023-08-19] MEDS: INSULIN ASPART SLIDING SCALE (NOVOLOG) 1 VIAL SQ SCH (16:31)
[2023-08-28] MEDS: HYDROCORTISONE 1% TOPICAL CREAM 30 GM TUBE TP PRN (06:35)
[2023-08-28] MEDS: SELENIUM SULFIDE 2.25% 180 ML SHAMPOO TP SCH (09:58)
[2023-08-29] MEDS: CARBAMIDE PEROXIDE 6.5% OTIC 15 ML BOTTLE AU SCH (21:11)
[2023-09-03 06:25] VITALS: RESP 16; TEMP 97.1
[2023-09-03 11:43] LABS: INR 1.02 (0.83-1.09); PROTHROMBIN TIME (PATIENT) 11.7 SEC (9.7-13.0)
[2023-09-04 06:37] VITALS: BP 96/63; PULSE 76
== END 2023-09-04 09:37 | disposition home or self-care (01) | DRG 772 ==
LOC: YASAS 12:20 → Y3E 12:22
PROVIDERS: ADMIT Surgery; ATTEND Psychiatry & Neurology Pain Medicine
PROC: HZ42ZZZ Group Counseling for Substance Abuse Treatment, Cognitive-Behavioral (ICD-10-PCS; principal; 2023-08-07)
DX: F10.20 Alcohol dependence, uncomplicated (principal); F17.210 Nicotine dependence, cigarettes, uncomplicated; F10.282 Alcohol dependence with alcohol-induced sleep disorder; F10.24 Alcohol dependence with alcohol-induced mood disorder; F31.9 Bipolar disorder, unspecified; F41.9 Anxiety disorder, unspecified; E72.20 Disorder of urea cycle metabolism, unspecified; D68.9 Coagulation defect, unspecified; I10 Essential (primary) hypertension; J45.20 Mild intermittent asthma, uncomplicated; H61.23 Impacted cerumen, bilateral; R73.03 Prediabetes
CPT/HCPCS: 36415; 82140; 82306; 82962; 83735; 85610; 86803; 87389